=== PATIENT | female | born 1975 | race American Indian/Alaskan Native ===

== ENCOUNTER 2020-04-05 20:32 | Emergency (ER) | payer SELFPAY ==
[2020-04-05 21:38] LABS: Basophils # (Auto) 0.1 K/mm3 (0.0-0.1); Basophils % (Auto) 0.7 % (0.0-1.8); Eosinophils # (Auto) 0.1 K/mm3 (0.0-0.4); Hemoglobin 10.3 gm/dl (10.1-14.3); Lymphocytes # (Auto) 1.8 K/mm3 (1.2-5.4); Lymphocytes % (Auto) 17.7 % (13.4-35.0); Mean Corpuscular HGB Conc 31 % (30-34); Monocytes # (Auto) 0.8 K/mm3 (0.0-0.8); Monocytes % (Auto) 7.9 % (0.0-7.3); Platelet Count 342 K/mm3 (140-440); Red Blood Count 4.92 M/mm3 (3.65-5.03); Red Cell Distribution Width 18.8 % (13.2-15.2)
[2020-04-05 21:39] LABS: Mean Corpuscular Volume 67 fl (79-97)
[2020-04-05 21:43] LABS: Bilirubin,Urine NEG (Negative); Blood,Urine SM (Negative); Color,Urine Yellow (Yellow); Protein,Urine <15 mg/dL mg/dL (Negative); Urobilinogen,Urine < 2.0 mg/dL (<2.0)
[2020-04-05 21:44] LABS: HCG Qualitative,Urine Negative (Negative)
[2020-04-05] MEDS ORDERED: SODIUM CHLORIDE 0.9% 1000 ML 1,000 ML IV ONE (21:46)
[2020-04-05] MEDS ORDERED: ONDANSETRON 4 MG/2 ML INJ IV ONE (21:46)
[2020-04-05] MEDS ORDERED: MORPHINE 4 MG/1 ML INJ IV ONE (21:46)
[2020-04-05 22:03] LABS: Alanine Aminotransferase 10 units/L (7-56); Albumin 3.6 g/dL (3.9-5); BUN/Creatinine Ratio 10; Blood Urea Nitrogen 7 mg/dL (7-17); Calcium 8.7 mg/dL (8.4-10.2); Hemolysis Index 3
--- NOTE | 2020-04-05 22:58 | Cat Scan Report ---
CT ABDOMEN AND PELVIS WITH CONTRAST INDICATION: MAIN: diffuse lower, 100cc [id number]. TECHNIQUE: Axial CT images were obtained through the abdomen and pelvis after 100 cc Omnipaque [address] scans at this location are performed using CT dose reduction for ALARA by means of automated exposure control. COMPARISON: None available. FINDINGS: LOWER CHEST: No significant abnormality. LIVER: No significant abnormality. GALLBLADDER: No significant abnormality. BILE DUCTS: No significant abnormality. PANCREAS: No significant abnormality. SPLEEN: No significant abnormality. ADRENALS: No significant abnormality. RIGHT KIDNEY and URETER: No significant abnormality. LEFT KIDNEY and URETER: No significant abnormality. STOMACH and SMALL BOWEL: No significant abnormality. COLON: No significant abnormality. APPENDIX: No significant abnormality. PERITONEUM: No free fluid. No free air. No fluid collection. LYMPH NODES: No significant adenopathy. AORTA and ARTERIES: No significant abnormality. IVC and VEINS: No significant abnormality. URINARY BLADDER: No significant abnormality. REPRODUCTIVE ORGANS: Several uterine leiomyomas, 2 of which appear centrally necrotic. The largest ut erine leiomyoma measures 6.5 cm. Thick-walled distended vagina or less likely distal anus. ADDITIONAL FINDINGS: None. SKELETAL SYSTEM: No significant abnormality. IMPRESSION: 1. Gas-filled distended vagina with thickened wall. Please correlate with pelvic exam. Less likely, t his could represent distal anorectal cancer. 2. Enlarged leiomyomatous uterus. Signer Name: Kota Spencer MD Signed: 04/05/2020 10:53 PM Workstation Name: [id number]
[2020-04-06] MEDS ORDERED: oxyCODONE /ACETAMINOPHEN 5-325MG TAB PO ONE (02:07)
[2020-04-06] MEDS ORDERED: ONDANSETRON 4 MG ODT TAB PO ONE (02:07)
--- NOTE | 2020-04-06 02:57 | Emergency Department Report ---
ED Abdominal Pain HPI - General Chief Complaint: Abdominal Pain Stated Complaint: LOWER ABD PAIN Source: patient Mode of arrival: Ambulatory Limitations: No Limitations - History of Present Illness Initial Comments: Patient is a 44-year-old -[place] female with a history of chronic uterine fibroid who presents to the ED with complaint of acute onset persistent severe pelvic pain with nausea for the last 4 days. Patient states that the pain has been persistent and sharp especially in the last 2 days. Patient also states that she just started her menstrual cycle about 12 hours ago. Patient denies dizziness, syncope, fever, chills, vomiting, diarrhea, dysuria, urinary frequency and urgency, vaginal discharge, low back pain, fall, traumatic injury, chest pain or shortness of breath. MD Complaint: abdominal pain -: Sudden, days(s) (4) Location: suprapubic Radiation: suprapubic Migration to: no migration Severity scale (0 -10): 4 Quality: cramping, aching, sharp Consistency: constant Improves With: nothing Worsens With: nothing Associated Symptoms: denies other symptoms, nausea. denies: vomiting, diarrhea, fever, chills, constipation, dysuria, hematemesis, hematochezia, melena, he maturia, anorexia, syncope - Related Data LMP Date: 04/05/20 Previous Rx's Medication Instructions Recorded Last Taken Type Acetaminophen/Codeine [Tylenol 1 tab PO Q6H PRN #12 tab 04/06/20 Unknown Rx /Codeine # 3 tab] Ibuprofen [Motrin] 800 mg PO Q8HR PRN #30 tablet 04/06/20 Unknown Rx Ondansetron [Zofran Odt] 4 mg PO Q6HR PRN #15 tab.rapdis 04/06/20 Unknown Rx Allergies Allergy/AdvReac Type Severity Reaction Status Date / Time No Known Allergies Allergy Unverified 04/05/20 21:02 ED Review of Systems ROS: Stated complaint: LOWER ABD PAIN Other details as noted in HPI Constitutional: denies: chills, fever Eyes: denies: eye pain, eye discharge, vision change ENT: denies: ear pain, throat pain Respiratory: denies: cough, shortness of breath, wheezing Cardiovascular: denies: chest pain, palpitations Endocrine: no symptoms reported Gastrointestinal: abdominal pain (Suprapubic pain), nausea. denies: diarrhea Genitourinary: denies: urgency, dysuria, discharge Musculoskeletal: denies: back pain, joint swelling, arthralgia Skin: denies: rash, lesions Neurological: denies: headache, weakness, paresthesias Psychiatric: denies: anxiety, depression Hematological/Lymphatic: denies: easy bleeding, easy bruising ED Past Medical Hx - Past Medical History Previous Medical History?: No - Surgical History Past Surgical History?: Yes Additional Surgical History: Lower back - Social History Smoking Status: Never Smoker Substance Use Type: Alcohol - Medications Home Medications: Home Medications Medication Instructions Recorded Confirmed Last Taken Type Acetaminophen/Codeine [Tylenol 1 tab PO Q6H PRN #12 tab 04/06/20 Unknown Rx /Codeine # 3 tab] Ibuprofen [Motrin] 800 mg PO Q8HR PRN #30 tablet 04/06/20 Unknown Rx Ondansetron [Zofran Odt] 4 mg PO Q6HR PRN #15 tab.rapdis 04/06/20 Unknown Rx ED Physical Exam - General Limitations: No Limitations General appearance: alert, in no apparent distress - Head Head exam: Present: atraumatic, normocephalic, normal inspection - Eye Eye exam: Present: normal appearance, PERRL, EOMI - ENT ENT exam: Present: normal exam, normal orophraynx, mucous membranes moist, TM's normal bilaterally, normal external ear exam - Neck Neck exam: Present: normal inspection, full ROM. Absent: tenderness, lymphadenopathy - Respiratory Respiratory exam: Present: normal lung sounds bilaterally. Absent: respiratory distress, wheezes, rales, rhonchi, chest wall tenderness, accessory muscle use, decreased breath sounds, prolonged expiratory - Cardiovascular Cardiovascular Exam: Present: regular rate, normal rhythm, normal heart sounds. Absent: systolic murmur, diastolic murmur, rubs, gallop - GI/Abdominal GI/Abdominal exam: Present: soft, tenderness (Palpable suprapubic tenderness), normal bowel sounds. Absent: guarding, rebound, hyperactive bowel sounds, hypoactive bowel sounds, organomegaly - External exam: Present: normal external exam Speculum exam: Present: vaginal bleeding. Absent: vaginal discharge Bi-manual exam: Present: uterine tenderness, other (Female RN Ms. Jenkins present during pelvic exam) - Extremities Exam Extremities exam: Present: normal inspection, full ROM, normal capillary refill - Back Exam Back exam: Present: normal inspection, full ROM. Absent: tenderness, CVA tenderness (R), CVA tenderness (L), muscle spasm, paraspinal tenderness, vert ebral tenderness - Neurological Exam Neurological exam: Present: alert, oriented X3, CN II-XII intact, normal gait, reflexes normal - Psychiatric Psychiatric exam: Present: normal affect, normal mood - Skin Skin exam: Present: warm, dry, intact, normal color. Absent: rash ED Course Vital Signs 04/05/20 20:50 Temperature 98.7 F Pulse Rate 67 Respiratory 18 Rate Blood Pressure 146/91 O2 Sat by Pulse 97 Oximetry ED Medical Decision Making - Lab Data Result diagrams: 04/05/20 21:27 04/05/20 21:27 - Radiology Data Radiology results: report reviewed, image reviewed Findings [address] [address] Cat Scan Report Signed Patient: KAMILA LYN MR#: [id number] : 1975 Acct:[id number] Age/Sex: 44 / F ADM Date: 04/05/20 Loc: ED Attending Dr: Ordering Physician: FABIANA HERNANDEZ Date of Service: 04/05/20 Procedure(s): CT abdomen pelvis w con Accession Number(s): [id number] cc: FABIANA HERNANDEZ CT ABDOMEN AND PELVIS WITH CONTRAST INDICATION: MAIN: diffuse lower, 100cc [id number]. TECHNIQUE: Axial CT images were obtained through the abdomen and pelvis after 100 cc Omnipaque [address] scans at this location are performed using CT dose reduction for ALARA by means of automated exposure control. COMPARISON: None available. FINDINGS: LOWER CHEST: No significant abnormality. LIVER: No significant abnormality. GALLBLADDER: No significant abnormality. BILE DUCTS: No significant abnormality. PANCREAS: No significant abnormality. SPLEEN: No significant abnormality. ADRENALS: No significant abnormality. RIGHT KIDNEY and URETER: No significant abnormality. LEFT KIDNEY and URETER: No significant abnormality. STOMACH and SMALL BOWEL: No significant abnormality. COLON: No significant abnormality. APPENDIX: No significant abnormality. PERITONEUM: No free fluid. No free air. No fluid collection. LYMPH NODES: No significant adenopathy. AORTA and ARTERIES: No significant abnormality. IVC and VEINS: No significant abnormality. URINARY BLADDER: No significant abnormality. REPRODUCTIVE ORGANS: Several uterine leiomyomas, 2 of which appear centrally necrotic. The largest uterine leiomyoma measures 6.5 cm. Thick-walled distended vagina or less likely distal anus. ADDITIONAL FINDINGS: None. SKELETAL SYSTEM: No significant abnormality. IMPRESSION: 1. Gas-filled distended vagina with thickened wall. Please correlate with pelvic exam. Less likely, this could represent distal anorectal cancer. 2. Enlarged leiomyomatous uterus. Signer Name: Kota Spencer MD Signed: 04/05/2020 10:53 PM Workstation Name: [id number] Transcribed By: TL Dictated By: Kota Spencer MD Electronically Authenticated By: Kota Spencer MD Signed Date/Time: 04/05/202252 DD/ 47 TD/TT: - Medical Decision Making This is a 44-year-old -Filipino female with a history of chronic uterine fibroid who presents to the ED with complaint of acute onset persistent severe pelvic pain with nausea for the last 4 days. Patient states that the pain has been persistent and sharp especially in the last 2 days. Patient also states that she just started her menstrual cycle about 12 hours ago. In the ED, patient is alert and oriented x3 and is not in distress. Lab test results were reviewed and are all nonactionable. Patient was treated for pain in the ED and abdomen pelvis CT scan with contrast shows several uterine leiomyomas, 2 of which appear centrally necrotic. The largest uterine leiomyoma measures 6.5 cm. Thick-walled distended vagina or less likely distal anus. Pelvic exam is r emarkable for heavy vaginal bleeding consistent with patient's menstrual cycle with moderate cervical motion tenderness. On reevaluation, patient's pain is well controlled with medications, patient will discharge home on medication for pain and was advised to follow-up with her primary care physician or [employer]ORTS MANAGER physician 5 to 7 days for reevaluation return to the ED immediately if symptoms get worse. - Differential Diagnosis PID; Dysmenorrhea; Uterine fibroids; UTI; Colitis; Ovarian cyst Critical care attestation.: If time is entered above; I have spent that time in minutes in the direct care of this critically ill patient, excluding procedure time. ED Disposition Clinical Impression: Acute bilateral lower abdominal pain, Dysmenorrhea Uterine fibroid Qualifiers: Uterine leiomyoma location: unspecified location Qualified Code(s): D25.9 - Leiomyoma of uterus, unspecified Disposition: DC- TO HOME OR SELFCARE Is pt being admited?: No Does the pt Need Aspirin: No Condition: Stable Instructions: Dysmenorrhea (ED), Uterine Fibroids (ED), Abdominal Pain (ED) Additional Instructions: Take medication with food, drink plenty of fluids and follow-up with your primary care physician or SPORTS MANAGER physician in 7 to 10 days for reevaluation. Return to the ED immediately if symptoms get worse. Prescriptions: Ibuprofen [Motrin] 800 mg PO Q8HR PRN #30 tablet PRN Reason: Pain , Severe (7-10) Acetaminophen/Codeine [Tylenol /Codeine # 3 tab] 1 tab PO Q6H PRN #12 tab PRN Reason: Pain , Severe (7-10) Ondansetron [Zofran Odt] 4 mg PO Q6HR PRN #15 tab.rapdis PRN Reason: Nausea Referrals: [facility] [Provider Group] - 3-5 Days [facility] [Referring] - 3-5 Days Time of Disposition: 02:58 Print Language: OCCITAN
[2020-04-06 03:30] VITALS: BP 132/70
== END 2020-04-06 03:31 | disposition home or self-care (01) ==
LOC: ED 20:32
DX: D25.9 Leiomyoma of uterus, unspecified (principal); N94.6 Dysmenorrhea, unspecified
CPT/HCPCS: 36415; 74177; 80053; 81001; 81025; 83690; 85025; 96374; 96375; 99284; J2270; J2405; J7030; Q9967; Q0162